=== PATIENT | male | born 1955 | race African-American/Black ===

== ENCOUNTER 2018-05-16 07:29 | Inpatient (IN) | payer OTHER ==
[2018-05-16] VITALS: BP 107/79
[~2018-05-16] VITALS: Ht 182.9 cm; Wt 59.0 kg
[2018-05-16] MEDS ORDERED: KETOROLAC 60MG/2ML VIAL IM STA (08:53)
[2018-05-16] MEDS ORDERED: CYCLOBENZAPRINE 10MG TABLET PO ONE (09:00)
[2018-05-16 10:48] LABS: CLARITY URINE CLEAR (CLEAR); COLOR URINE YELLOW (YELLOW); KETONES URINE 3+ (NEGATIVE); LEUKOCYTE ESTERASE URINE NEGATIVE (NEGATIVE); NITRITE URINE NEGATIVE (NEGATIVE); OCCULT BLOOD URINE NEGATIVE (NEGATIVE); PROTEIN URINE NEGATIVE (NEGATIVE); UROBILINOGEN URINE 0.2 E.U./dL (0.2-1.0)
[2018-05-16] MEDS ORDERED: SODIUM CHLORIDE 0.9% 1,000 ML IV ONE ×2 (10:51→11:58)
[2018-05-16] MEDS ORDERED: ONDANSETRON HCL 4MG/2ML INJ IV STA (11:58)
[2018-05-16] MEDS ORDERED: INSULIN REGULAR (HUMULIN R) 300UNITS/3ML IV ONE (12:00)
[2018-05-16 12:18] LABS: BASOPHILS % 0.4 % (0.0-2.0); HEMATOCRIT. 49.1 % (42.0-52.0); LYMPHOCYTES % 11.5 % (20.0-50.0); MEAN CORPUSCULAR HEMOGLOBIN 32.6 pg (28.0-32.0); MEAN CORPUSCULAR VOLUME 100.1 fL (80.0-94.0); MEAN PLATELET VOLUME 10.7 fl (7.4-10.4); MONOCYTES % 3.4 % (2.0-8.0); NEUTROPHILS % 84.7 % (40.0-76.0); PLATELET 321 x1000/uL (130-400); RED CELL DISTRIBUTION WIDTH 13.4 % (11.6-14.6)
[2018-05-16 12:20] LABS: CHLORIDE 83 mEq/L (98-107)
[2018-05-16] MEDS ORDERED: HYDROCODONE/ACETAMINOPHEN 5/325MG TABLET PO STA (13:32)
[2018-05-16] MEDS ORDERED: FUROSEMIDE 100MG/10ML VIAL IV STA (13:56)
[2018-05-16] MEDS ORDERED: DEXTROSE 50% WATER 50ML SYRINGE IV ONE (14:00)
[2018-05-16] MEDS ORDERED: SODIUM BICARBONATE 8.4% 1 MEQ/ML 50ML SYR IV ONE (14:00)
[2018-05-16] MEDS ORDERED: CALCIUM CHLORIDE 1GM/10ML SYR IV ONE (14:00)
[2018-05-16] MEDS ORDERED: DEXTROSE 5% IV ONE (14:30)
[2018-05-16] MEDS ORDERED: CALCIUM CHLORIDE IV ONE (14:30)
[2018-05-16] MEDS ORDERED: WATER IV ONE (14:30)
[2018-05-16 14:41] LABS: CHLORIDE 95 mEq/L (98-107)
[2018-05-16] MEDS ORDERED: IBUPROFEN 600MG TABLET PO PRN (14:45)
[2018-05-16] MEDS ORDERED: INSULIN REGULAR (DRIP) 100 UNITS in SODIUM CHLORIDE 0.9% 100 ML IV ONE (16:00)
[2018-05-16] MEDS ORDERED: INSULIN REGULAR (DRIP) 100 UNITS in SODIUM CHLORIDE 0.9% 100 ML IV NR (16:30)
[2018-05-16] MEDS ORDERED: INSULIN REGULAR (DRIP) 100 UNITS in SODIUM CHLORIDE 0.9% 100 ML IV SCH ×2 (16:40→21:00)
[2018-05-16] MEDS ORDERED: ACETAMINOPHEN 325MG TABLET PO PRN (16:45)
[2018-05-16] MEDS ORDERED: ZOLPIDEM TARTRATE 5MG TABLET PO PRN (16:45)
[2018-05-16] MEDS ORDERED: ONDANSETRON HCL 4MG/2ML INJ IV PRN (16:45)
[2018-05-16] MEDS ORDERED: NITROGLYCERIN 0.4MG TABLET SL SL PRN (16:45)
[2018-05-16] MEDS ORDERED: DEXTROSE 50% WATER 50ML SYRINGE IV PRN ×3 (16:45→21:15)
[2018-05-16] MEDS ORDERED: IPRATROPIUM/ALBUTEROL 0.5-3(2.5)MG/3ML NEB INH PRN (16:45)
[2018-05-16] MEDS ORDERED: MAGNESIUM/ALUMINUM HYDROXIDE/SIMETHICONE 30ML UDC PO PRN (16:45)
[2018-05-16] MEDS ORDERED: DOCUSATE SODIUM 100MG CAPSULE PO PRN (16:45)
[2018-05-16] MEDS ORDERED: CLONIDINE 0.1MG TABLET PO PRN (16:45)
[2018-05-16] MEDS ORDERED: KETOROLAC 15MG/ML VIAL IV PRN (16:45)
[2018-05-16 18:17] LABS: BG BASE EXCESS -1.2 mmol/L (-2.0-2.0); BG CARBOXYHEMOGLOBIN 0.7 % (0.5-1.5); BG DEOXYHEMOGLOBIN 2.8 % (0.0-5.0); BG FRACTION INSPIRED OXYGEN 21; BG HCO3 ACT 22.6 mmol/L (22.0-26.0); BG METHEMOGLOBIN 0.4 % (0.0-1.5); BG OXYGEN SATURATION 97.2 % (92.0-98.5); BG OXYHEMOGLOBIN 96.1 % (94.0-97.0); BG PCO2 35.5 mmHg (35.0-45.0); BG PH 7.422 (7.350-7.450); BG PO2 91.4 mmHg (75.0-100.0); BG SAMPLE SITE RIGHT RADIAL; BG TOTAL HEMOGLOBIN 14.9 g/dL (12.0-18.0); BG VENT MODE ROOM AIR
[2018-05-16 19:23] LABS: METHADONE URINE SCREEN NEGATIVE (NEGATIVE); OPIATES URINE SCREEN NEGATIVE (NEGATIVE)
[2018-05-16 19:24] LABS: *AMPHETAMINES SCREEN URINE NEGATIVE (NEGATIVE); *BARBITURATES SCREEN URINE NEGATIVE (NEGATIVE); *BENZODIAZEPINES SCREEN URINE NEGATIVE (NEGATIVE); *COCAINE SCREEN URINE NEGATIVE (NEGATIVE); CANNABINOID URINE SCREEN NEGATIVE (NEGATIVE); PHENCYCLIDINE URINE SCREEN NEGATIVE (NEGATIVE)
[2018-05-16 20:00] VITALS: BP_SYST 106; BP_SYST 107; BP_DIAS 70; BP_DIAS 71
[2018-05-16 21:00] VITALS: BP_SYST 110; BP_DIAS 3; BP_DIAS 73
[2018-05-16] MEDS ORDERED: BLOOD SUGAR DIAGNOSTIC STRIP TEST SCH (21:00)
[2018-05-16] MEDS: BLOOD SUGAR DIAGNOSTIC STRIP TEST SCH ×3 (21:00→23:19)
[2018-05-16] MEDS ORDERED: DEXT 5%/0.9% NACL 1,000 ML IV SCH (21:15)
[2018-05-16 22:00] VITALS: BP 105/74
[2018-05-16] MEDS ORDERED: INSULIN REGULAR (DRIP) 100 UNITS in SODIUM CHLORIDE 0.9% 99 ML IV SCH (22:00)
[2018-05-16 23:00] VITALS: BP 93/62
[2018-05-16] MEDS: SODIUM CHLORIDE 0.9% 1,000 ML IV SCH (23:10)
[2018-05-16] MEDS: ENOXAPARIN 40MG/0.4ML SYR SUBCUT SCH (23:17)
[2018-05-17] VITALS (33 sets, daily range): BP systolic 83–131; BP diastolic 50–78
[2018-05-17] MEDS: BLOOD SUGAR DIAGNOSTIC STRIP TEST SCH ×18 (00:16→20:39)
[2018-05-17] MEDS: DEXTROSE 50% WATER 50ML SYRINGE IV PRN ×2 (00:41→03:19)
[2018-05-17] MEDS: SODIUM CHLORIDE 0.9% 1,000 ML IV SCH (03:23)
[2018-05-17] MEDS: DEXT 5%/0.9% NACL 1,000 ML IV SCH ×3 (03:37→23:45)
[2018-05-17 06:30] LABS: BASOPHILS % 0.4 % (0.0-2.0); EOSINOPHILS % 0.5 % (0.0-5.0); HEMATOCRIT. 39.8 % (42.0-52.0); HEMOGLOBIN. 13.5 g/dL (14.0-18.0); LYMPHOCYTES % 26.2 % (20.0-50.0); MEAN CORPUSCULAR HEMOGLOBIN 32.5 pg (28.0-32.0); MEAN CORPUSCULAR VOLUME 96.1 fL (80.0-94.0); MEAN PLATELET VOLUME 9.8 fl (7.4-10.4); MONOCYTES % 8.4 % (2.0-8.0); NEUTROPHILS % 64.5 % (40.0-76.0); PLATELET 273 x1000/uL (130-400); RED BLOOD CELL COUNT 4.14 mill/uL (4.7-6.1)
[2018-05-17 07:07] LABS: CHLORIDE 103 mEq/L (98-107)
[2018-05-17] MEDS: ASPIRIN 325MG EC TABLET PO SCH (08:51)
[2018-05-17] MEDS: PANTOPRAZOLE SODIUM 40 MG/VIAL IV SCH (08:51)
[2018-05-17] MEDS ORDERED: DEXTROSE 50% WATER 50ML SYRINGE IV PRN (09:45)
[2018-05-17] MEDS ORDERED: INSULIN GLARGINE UD 100 UNITS/ML SYR SUBCUT SCH (11:30)
[2018-05-17] MEDS: INSULIN LISPRO 100 UNITS/ML SUBCUT SCH ×5 (12:50→20:33)
[2018-05-17] MEDS: GUAIFENESIN 200MG/10ML SUGAR FREE UDC PO PRN (19:37)
[2018-05-17] MEDS: ENOXAPARIN 40MG/0.4ML SYR SUBCUT SCH (20:39)
[2018-05-17] MEDS: TRAMADOL 50MG TABLET PO PRN (23:43)
[2018-05-18] VITALS (20 sets, daily range): BP systolic 95–135; BP diastolic 51–79
[2018-05-18] MEDS: GUAIFENESIN 200MG/10ML SUGAR FREE UDC PO PRN (02:02)
[2018-05-18] MEDS: DEXT 5%/0.9% NACL 1,000 ML IV SCH ×2 (04:43→10:13)
[2018-05-18] MEDS: BLOOD SUGAR DIAGNOSTIC STRIP TEST SCH ×2 (06:49→13:01)
[2018-05-18] MEDS: INSULIN LISPRO 100 UNITS/ML SUBCUT SCH ×4 (06:54→13:02)
[2018-05-18] MEDS: PANTOPRAZOLE SODIUM 40 MG/VIAL IV SCH (09:15)
[2018-05-18] MEDS: ASPIRIN 325MG EC TABLET PO SCH (09:15)
[2018-05-18] MEDS: TRAMADOL 50MG TABLET PO PRN (09:16)
[2018-05-18] MEDS ORDERED: INSULIN GLARGINE UD 100 UNITS/ML SYR SUBCUT SCH (11:00)
== END 2018-05-18 15:25 | disposition home or self-care (01) | DRG 469 ==
LOC: ER 07:29 → EDBEDREQ 14:02 → CVICU 14:37 → EDBEDREQ 14:46 → CANRESERV 15:38 → ENRESERV 15:38 → EDBEDREQSVC 15:52 → EDBEDREQ 16:09 → ENRESERV 18:48
PROVIDERS: ADMIT Internal Medicine; ATTEND Internal Medicine
DX: N17.9 Acute kidney failure, unspecified (principal); E43 Unspecified severe protein-calorie malnutrition; E11.10 Type 2 diabetes mellitus with ketoacidosis without coma; E87.2 Acidosis; E87.5 Hyperkalemia; E87.1 Hypo-osmolality and hyponatremia; M54.5 Low back pain
CPT/HCPCS: 36415; 36600; 71045; 72100; 80048; 80061; 80076; 80305; 82375; 82805; 82962; 83036; 83735; 84100; 93970; 96372; 96374; 96375; 99285; C9113; J1650; J1815; J1885; J1940; J2405; J3490; J7030; J7042; J7050; J7060